=== PATIENT | female | born 1980 ===

== ENCOUNTER 2018-01-25 16:31 | Emergency (ER) | payer BC, OTHER ==
[2018-01-25 17:07] VITALS: BP 132/87; PULSE 86; TEMP 98.9; O2SAT 100
--- NOTE | 2018-01-25 18:03 | RAD ---
HISTORY: right sided rib pain COMPARISON: No prior. TECHNIQUE: Chest PA and lateral FINDINGS: LUNGS: No focal consolidation. The interstitial markings are slightly increased and coarsened which could be technical however the possibility of mild sequela of reactive/inflammatory airway disease or viral illness not excluded. PLEURA: No significant pleural effusion identified. No pneumothorax apparent. There also appears to be some minimal biapical pleural thickening CARDIOVASCULAR: Normal. OSSEOUS STRUCTURES: No significant abnormalities. VISUALIZED UPPER ABDOMEN: Normal. OTHER FINDINGS: None. IMPRESSION: No focal consolidation. The interstitial markings are slightly increased and coarsened which could be technical however the possibility of mild sequela of reactive/inflammatory airway disease or viral illness not excluded.
--- NOTE | 2018-01-25 18:15 | C.PDOC ---
History Of Present Illness 37 year old female presents to the ER with a complaint of rib pain for the past 9 days after she was "wrestling". Patient states the pain is constant and worse with cough and deep breathing. Denies fever, hemoptysis, neck pain, dizziness, numbness, weakness, chills, or SOB. Time Seen by Provider: 01/25/18 17:11 Chief Complaint (Nursing): Rib Injury History Per: Patient History/Exam Limitations: no limitations Onset/Duration Of Symptoms: Days Current Symptoms Are (Timing): Still Present Recent travel outside of the [place]: No Past Medical History Reviewed: Historical Data, Nursing Documentation, Vital Signs Vital Signs: Last Vital Signs Temp 98.9 F 01/25/18 17:02 Pulse 86 01/25/18 17:02 Resp 16 01/25/18 18:53 BP 132/87 01/25/18 17:02 Pulse Ox 100 01/25/18 21:49 - Medical History PMH: Anemia Surgical History: No Surg Hx Family History: States: Unknown Family Hx - Social History Hx Alcohol Use: Yes Hx Substance Use: No - Immunization History Hx Tetanus Toxoid Vaccination: No Hx Influenza Vaccination: No Hx Pneumococcal Vaccination: No Review Of Systems Constitutional: Negative for: Fever, Chills Cardiovascular: Negative for: Palpitations Respiratory: Negative for: Shortness of Breath Gastrointestinal: Negative for: Nausea, Vomiting Musculoskeletal: Positive for: Other (Rib pain) Physical Exam - Physical Exam Appears: Non-toxic Skin: Normal Color, Warm, Dry Head: Atraumatic, Normacephalic Eye(s): bilateral: Normal Inspection Oral Mucosa: Moist Neck: Normal, Supple Chest: Tenderness (Anterior right) Cardiovascular: Rhythm Regular Respiratory: Normal Breath Sounds, No Rales, No Rhonchi, No Wheezing Gastrointestinal/Abdominal: Soft, No Tenderness Back: No Vertebral Tenderness, No Paraspinal Tenderness Extremity: Normal ROM (x4) Neurological/Psych: Oriented x3, Normal Speech ED Course And Treatment O2 Sat by Pulse Oximetry: 100 (Room air) Pulse Ox Interpretation: Normal - Radiology CXR: Interpreted by Me, Viewed By Me CXR Interpretation: Yes: Other (No focal consolidation. The interstitial markings are slightly increased and coarsened which could be technical however the possibility of mild sequela of reactive/inflammatory airway disease or viral illness not excluded.) Medical Decision Making Medical Decision Making: CXR is negative for PTX or other abnormalities at this time. On re-exam, the patient reports improvement of symptoms. Lungs are CTA, heart is RRR, abdomen is soft, non-tender and tolerating PO well. Ambulatory in the ED with steady gait. Follow up with the medical doctor within 1-2 days without fail. Return if worsened. Disposition - Disposition Referrals: at [facility] [Outside] Disposition: HOME/ ROUTINE Disposition Time: 18:15 Condition: GOOD Additional Instructions: Follow up with the medical doctor within 1-2 days without fail. Return if worsened. Prescriptions: Acetaminophen [Tylenol] 325 mg PO Q6 PRN #30 tab PRN Reason: Pain, Mild (1-3) Ibuprofen [Motrin] 1 tab PO TID PRN #30 tab PRN Reason: Pain Instructions: Muscle Spasms (DC), Bruised Rib (DC) Forms: Work/School/Gym Excuse, [facility] (Maltese) - Clinical Impression Clinical Impression: Muscle spasm - PA / RANGER AIDE / Resident Statement MD/DO has reviewed & agrees with the documentation as recorded. - Scribe Statement The provider has reviewed the documentation as recorded by the Scribe Robert Roberts All medical record entries made by the Hienibchandana were at my direction and personally dictated by me. I have reviewed the chart and agree that the record accurately reflects my personal performance of the history, physical exam, medical decision making, and the department course for this patient. I have also personally directed, reviewed, and agree with the discharge instructions and disposition.
[2018-01-25 18:54] VITALS: RESP 16
== END 2018-01-25 18:53 | disposition home or self-care (01) ==
LOC: C.ER 16:31
DX: M62.838 Other muscle spasm (principal)